=== PATIENT | male | born 1990 | race American Indian/Alaskan Native ===

== ENCOUNTER 2019-01-31 03:16 | Emergency (ER) | payer SELFPAY ==
[2019-01-31 03:26] VITALS: BP 134/95
[2019-01-31] MEDS ORDERED: REGLAN ONE (03:46)
[2019-01-31] MEDS ORDERED: TORADOL ONE (03:47)
[2019-01-31] MEDS ORDERED: BENADRYL ONE (03:47)
[2019-01-31] MEDS ORDERED: PERCOCET 5/325 PO ONE (03:58)
[2019-01-31] MEDS ORDERED: PERCOCET 5/325 ONE (03:58)
== END 2019-01-31 05:03 | disposition left against medical advice (07) ==
LOC: ED 03:16
DX: G43.909 Migraine, unspecified, not intractable, without status migrainosus (principal); Z53.21 Procedure and treatment not carried out due to patient leaving prior to being seen by health care provider
CPT/HCPCS: J1200; J1885; J2765